=== PATIENT | male | born 2000 | race African-American/Black ===

== ENCOUNTER 2018-11-01 18:21 | Emergency (ER) | payer OTHER | END 2018-11-01 21:25 | disposition home or self-care (01) | LOC: JERFT 18:21 ==

== ENCOUNTER 2023-05-04 19:38 | Emergency (ER) | payer OTHER ==
[2023-05-04 19:41] VITALS: BP 137/85; PULSE 71; RESP 16; TEMP 98.5; BMI 33.7
== END 2023-05-04 21:10 | disposition home or self-care (01) ==
LOC: JERFT 19:38 → JER 19:38 → JERFT 21:10
DX: S09.90XA Unspecified injury of head, initial encounter (principal); W20.8XXA Other cause of strike by thrown, projected or falling object, initial encounter
CPT/HCPCS: 99282-25